=== PATIENT | female | born 1985 | race Caucasian/White ===

== ENCOUNTER 2016-11-26 17:18 | Observation (INO) | payer BC ==
--- NOTE | 2016-11-26 17:59 | ERNOTE ---
Abdominal HPI - Narrative Date of Service: 11/26/16 - General Chief Complaint: Abdominal Pain Time Seen by Provider: 11/26/16 17:53 Source: patient Exam Limitations: no limitations - Immun/Allergies/Home Medications Immunizatons: IMMUNIZATION HX Immunizations Up to Date Yes History of Influenza Vaccine No Hx Pneumococcal Vaccination No Allergies/Adverse Reactions: Allergies azithromycin [From Zithromax] Allergy (Intermediate, Verified 11/26/16 17:23) itch cefaclor [From Ceclor] Allergy (Intermediate, Verified 11/26/16 17:23) Hives Home Medications: HOME MEDICATIONS NK [No Home Medication] 11/26/16 [Last Taken Unknown] - Pain Score Pain Score #1 Pain Score: 9 Abdominal Pain Onset Location: periumbilical Pain Radiation: epigastric - History of Present Illness Narrative: 31yo, F, presents to ER with c/o periumbilical abdominal pain, diarrhea and nausea. Denies vomiting. Symptoms started this am with diarrhea, followed by abd pain at approx 15:00. Pain constant since onset, and progressively. Last BM 1 hr ago, which she describes as yellow and runny. Prior to onset of diarrhea BMs had been normal. LMP 2 weeks ago. Timing: constant, getting worse Modifying Factors - (Improves): Present: rest, other - pressure to abd Modifying Factors - (Worsens): Present: movement Associated Symptoms: Present: nausea. Absent: diarrhea-gross blood, diarrhea- mucous, fever/chills, vomiting, loss of appetite, shortness of breath Prior Abdominal Problems: Present: none Review of Systems - Review of Systems Constitutional: Absent: fever, chills, fatigue Gastrointestinal/Abdominal: Present: nausea, diarrhea, abdominal pain. Absent: vomiting, constipation Genitourinary: Present: dysuria. Absent: frequency, hematuria Skin: Absent: rash - Patient's Past Medical History Patient History - Medical: No pertinent hx Patient History - Cardiac/Respiratory: No pertinent hx Patient History - Cancer: No Hx of Cancer Patient History - Surgical Procedures: Tubal Ligation Patient History - Other: None LMP (females 10-50): 3 weeks - Social History Living Situations: home Abuse History: No History of abuse Psych History: No pertinent hx Smoking Status: Never smoker Have you smoked in the past 12 months: No Do you dip or chew tobacco: No Alcohol Use: none Drug Use: none - Immunizations Immunizations Up to Date: Yes Hx Pneumococcal Vaccination: No History of Influenza Vaccine: No Physical Exam - Physical Exam General Appearance: Present: wd/wn, alert, no apparent distress Respiratory: Present: no respiratory distress, normal breath sounds, no accessory muscle use. Absent: rales, rhonchi, wheezing Cardiovascular/Chest: Present: regular rate, rhythm, no murmur Gastrointestinal/Abdominal: Present: normal bowel sounds, nondistended, soft, tenderness - moderate to periumbilical and RLQ, with mild RUQ, Obturator sign. Absent: rebound, mass Back Exam: Present: no CVA tenderness Neurological Exam: Present: alert, oriented Skin Exam: Present: normal color, warm/dry ED Progress - Date and Time Seen: Date and Time: 11/26/16 2200 Pain had improved initially with pain medication, but now increased to 7/10 notably uncomfortable and guarding the abd. Reviewed CT scan results with pt. Will administer Toradol to help with pain and inflammation, along with Morphine. 11/26/16 22:25 Due to pt exam findings, CT results and persistent pain. I believe admission for observation, IVF, monitoring and pain control would be in her best interest. Spoke with Dr. Vickers re: consult, exam findings, HPI, labs and CT results. He will be coming in to see patient. After consulting Dr. Vickers, spoke with hospitalist Katie. Admission accepted. 11/26/16 22:50 Pt notes pain to be decreased after last dose of Morphine or Toradol, rating pain 2/10. Although, continued to be doubled over holding abd when walking to bathroom. 11/26/16 23:10 Dr Vickers in ER to see pt, reviewing CT scan and evaluating pt. 11/26/16 23:34 Dr. Vickers agrees that at minimum pt needs admission for monitoring. There is concern for blood clot, as she recently started on OCP, with side effect of blood clots. Dr. Vickers recommends lactic acid and D-dimer, if abnormal additional testing or transfer may be indicated. If normal will continue with admission as planned. Will give an additional IVF, along with ASA 324mg chewable. Dr. Davis aware of HPI, exam findings, results and plan. Dr. Davis will assume care at this time. - Results and Orders Patient's Lab Results:: I have reviewed the patient's lab results. - Vital Signs Patient's Vital Signs:: I have reviewed the patient's vital signs. Vital Signs: Vital Signs 11/26/16 17:20 Temperature 37.1 C Pulse Rate 82 Respiratory 17 Rate Blood Pressure 103/67 O2 Sat by Pulse 99 Oximetry - Progress/Reassessment Chief Complaint: Abdominal Pain Progress:: Improved Progress Note-Subjective: 11/26/16 20:00 Notes pain is decreased to 4/10. She denies any need for additional pain medication, but does request additional nausea medication. Warm blanket provided. She does note that when lying flat she does have some RLQ pain, but is more to periumbilical region when sitting upright. - Transfer of Care Physician Sign Out: Naomi Marx Brief History: Please refer to progress notes Receiving Physician: Brian Davis Pending Results: Labs - lactic acid, d-dimer Expected Disposition: Admit Departure Clinical Impression: Abnormal CT scan Abdominal pain Qualifiers: Abdominal location: right lower quadrant Qualified Code(s): R10.31 - Right lower quadrant pain - Departure Disposition: [facility] Condition: Fair
[2016-11-26 18:18] LABS: Hematocrit 37.8 % (37.0-47.0); Hemoglobin 12.7 gm/dL (12.5-16.0); Mean Cell Volume 91.7 fl (78-100); Mean Corpuscular Hemoglobin 30.8 pg (27-31); Mean Corpuscular Hgb Conc 33.6 g/dl (32-36); Mean Platelet Volume 10.5 fl (6.0-9.5); Neutrophil # 8.9 K/mm3 (1.3-6.0); Neutrophil % 72.8 % (42-75.0); Platelet Count 228 K/mm3 (150-450); Red Blood Count 4.12 M/mm3 (4.2-5.4); Red Cell Distribution Width 12.5 % (11.5-14.0); White Blood Count 12.3 K/mm3 (4.0-10.5)
[2016-11-26] MEDS ORDERED: DIATRIZOATE MEGLUMINE, SODIUM 30 ML BTL ONE (18:18)
[2016-11-26] MEDS ORDERED: DIATRIZOATE MEGLUMINE, SODIUM 30 ML BTL PO ONE (18:19)
[2016-11-26] MEDS ORDERED: ONDANSETRON HCL/PF 2 MG/ML VIAL IV ONE ×3 (18:20→22:09)
[2016-11-26] MEDS ORDERED: MORPHINE SULFATE 4 MG/ML SYRG IV ONE (18:20)
[2016-11-26] MEDS ORDERED: NORMAL SALINE 1,000 ML IV ONE ×2 (18:21→23:50)
[2016-11-26 18:22] LABS: Urine Bilirubin Negative (NEGATIVE); Urine Ketone Negative (NEGATIVE); Urine Nitrite Negative (NEGATIVE); Urine Protein Negative (NEGATIVE); Urine Specific Gravity >=1.030 SP.GR. (1.005-1.010); Urine Urobilinogen Normal (NORMAL); Urine pH 5.5 pH (5.0-7.0)
[2016-11-26 18:32] LABS: Albumin * 3.9 gm/dl (3.4-5.0); Anion Gap 13.5 mmol/L (6.8-13.8); BUN/Creatinine Ratio 18.2 (9.0-21.6); Bilirubin, Total 1.7 mg/dL (0.0-1.1); CRP 0.9 mg/dL (0.0-0.9); Ca. Corrected For Albumin 8.5 mg/dL (8.4-10.2); Calcium * 8.7 mg/dL (7.9-10.9); Carbon Dioxide 25.1 mmol/L (24-32.6); Potassium 3.6 mmol/L (3.4-4.6); Total Protein 7.5 gm/dL (6.2-8.2)
[2016-11-26 18:33] LABS: Urine Blood 5 /ul (NEGATIVE)
[2016-11-26 18:34] LABS: Urine Appearance Clear; Urine Bacteria 1+; Urine Color Dark Yellow; Urine RBC 0-5 /hpf (0-5); Urine WBC 0-5 /hpf (0-5)
[2016-11-26] MEDS ORDERED: ONDANSETRON HCL/PF 2 MG/ML VIAL ONE ×2 (18:41→20:09)
[2016-11-26] MEDS ORDERED: MORPHINE SULFATE 4 MG/ML SYRG ONE (18:41)
[2016-11-26] MEDS ORDERED: MORPHINE SULFATE 2 MG/ML DISP.SYRIN IV ONE (22:09)
[2016-11-26] MEDS ORDERED: KETOROLAC TROMETHAMINE 30 MG/ML VIAL IV ONE (22:09)
[2016-11-26] MEDS ORDERED: MORPHINE SULFATE 2 MG/ML DISP.SYRIN ONE (22:15)
[2016-11-26] MEDS ORDERED: KETOROLAC TROMETHAMINE 30 MG/ML VIAL ONE (22:16)
[2016-11-26] MEDS ORDERED: ASPIRIN 81 MG TAB.CHEW PO ONE (23:47)
[2016-11-26] MEDS ORDERED: ASPIRIN 81 MG TAB.CHEW ONE (23:51)
--- NOTE | 2016-11-27 02:07 | HP ---
Chief Complaint - Chief Complaint Date of Service: 11/27/16 Time of Service: 01:42 Chief Complaint: " Diarrhea, RT lower abominal pain". Source of HPI- Pt; reliable, ER provider report. History of Present Illness: Ms. Abbott is a 31-yr-old [place] pt of Dr. Leopoldo Leonard with a PMH of: Anxiety, Asthma, Depression & Mylagia. Pt states yesterday morning,11/26, she woke up with abdominal pain and cramping which was followed by diarrhea. She then continued to have liquid diarrhea about 5 times. She had peanut butter jelly sandwich around 1.30 pm and almost right away had another episode of diarrhea and abdominal cramping. She went to work and at about 3 pm, she had diarrhea and felt lightheaded, dizzy and became sweaty, and EMS was called. She reports that the pain is mostly in the RLQ and its sharp in nature when it comes on. She denies the associated symptoms of fevers and chills, Vomiting, pain radiation or bloody stools. At the ED most of the Labwork was unremarkable however, she continued to have persistent diarrhea. The CT of the Abdomen showed inflammatory enteritis on RLQ.The ERP consulted surgery ( Dr. Vickers) and he evaluated pt at the ED and will follow pt. She will be admitted under observation for supportive cares and to determine etiology of diarrhea. - Patient's Past Medical History Patient History - Medical: Anxiety, Depression Patient History - Cardiac/Respiratory: Asthma Patient History - Cancer: No Hx of Cancer Patient History - Surgical Procedures: Tubal Ligation Patient History - Other: None LMP (females 10-50): 3 weeks - Family History Father Family History - Cardiac/Respiratory: Coronary Heart Disease, Hypertension Mother Family History - Cardiac/Respiratory: COPD, Hypertension - Social History Living Situations: home Abuse History: No History of abuse Psych History: No pertinent hx Smoking Status: Never smoker Have you smoked in the past 12 months: No Do you dip or chew tobacco: No Alcohol Use: none Drug Use: none - Immunizations Immunizations Up to Date: Yes Hx Pneumococcal Vaccination: No History of Influenza Vaccine: No Review Of Systems (GEN) - Review of Systems Generalized/Overall Review: Present: Weakness, Diaphoresis. Absent: Chills, Fever EENTM: Absent: Eye Pain, Blurred Vision, Tearing Respiratory: Absent: Cough, Shortness of Breath, Wheezing Cardiac: Absent: Chest Pain, Edema, Palpitations, Syncope Abdominal: Absent: Nausea, Vomiting, Hematemesis Genitourinary: Absent: Burning, Itching, Urgency, Frequency Musculoskeletal: Absent: Joint Pain, Back Pain, Joint Swelling Neurological: Present: Anxiety, Depressed. Absent: Headache Skin: Absent: Dryness, Lesions, Rash Endocrine: Absent: Intolerance to Cold, Intolerance to Heat, Increased Thirst Misc: All systems neg except as marked Immunizations: IMMUNIZATION HX Immunizations Up to Date Yes History of Influenza Vaccine No Hx Pneumococcal Vaccination No Allergies/Adverse Reactions: Allergies Allergy/AdvReac Type Severity Reaction Status Date / Time azithromycin [From Zithromax] Allergy Intermediate itch Verified 11/26/16 17:23 cefaclor [From Ceclor] Allergy Intermediate Hives Verified 11/26/16 17:23 Home Medications: HOME MEDICATIONS NK [No Home Medication] 11/26/16 [Last Taken Unknown] Exam - Exam Vital Signs: Vital Signs - Last Taken Temp 37.1 C 11/27/16 01:41 Pulse 70 11/27/16 01:41 Resp 18 11/27/16 01:41 BP 90/58 11/27/16 01:41 Pulse Ox 98 11/27/16 01:41 Constitutional: Present: Alert, Oriented x3, Cooperative, Mild distress ENT Exam: Present: normal ENT inspection Eye Exam: bilateral eye: normal inspection, PERRL Neck: Present: full range of motion, supple, normal inspection Back Exam: Present: normal inspection, no CVA tenderness Breasts: Present: Exam deferred Respiratory: Present: lungs clear, No rales, No wheezing Cardiovascular/Chest: Present: normal peripheral pulses, regular rate, rhythm, no chest tenderness, no edema, no murmur Abdomen: Present: Normal bowel sounds, soft, tender. Absent: rigidity - On RLQ. /Rectal: Present: Exam deferred Extremity: Present: normal range of motion, non-tender, normal inspection, no pedal edema Skin Exam: Present: warm/dry, no cyanosis Lymphatic: Present: no adenopathy Neurologic: Present: no motor/sensory deficits, alert, normal mood/affect, oriented x 3 Appearance: Present: appropriate appearance, appropriate insight Eye contact: Present: cooperative, good eye contact, normal speech Thoughts: Present: normal thought pattern, no apparent hallucination Diagnostic Studies: Abnormal Lab Results 11/26/16 Range/Units 23:45 D-Dimer 1.53 H (0.19-0.49) mg/L Laboratory Results WBC 12.3 K/mm3 (4.0-10.5) H 11/26/16 18:17 RBC 4.12 M/mm3 (4.2-5.4) L 11/26/16 18:17 Hgb 12.7 gm/dL (12.5-16.0) 11/26/16 18:17 Hct 37.8 % (37.0-47.0) 11/26/16 18:17 MCV 91.7 fl (78-100) 11/26/16 18:17 MCH 30.8 pg (27-31) 11/26/16 18:17 MCHC 33.6 g/dl (32-36) 11/26/16 18:17 RDW 12.5 % (11.5-14.0) 11/26/16 18:17 Plt Count 228 K/mm3 (150-450) 11/26/16 18:17 MPV 10.5 fl (6.0-9.5) H 11/26/16 18:17 Immature Gran % (Auto) 0.20 % (0.001-0.429) 11/26/16 18:17 Immature Gran # (Auto) 0.03 K/mm3 (0.000-0.0310) 11/26/16 18:17 Neutrophils % 72.8 % (42-75.0) 11/26/16 18:17 Lymphocytes % 17.6 % (20-51) L 11/26/16 18:17 Monocytes % 7.0 % (0.0-9) 11/26/16 18:17 Eosinophils % 2.0 % (0.0-3.0) 11/26/16 18:17 Basophils % 0.4 % (0.0-1.0) 11/26/16 18:17 Nucleated RBC % 0.0 k/mm3 (0-1) 11/26/16 18:17 Neutrophils # 8.9 K/mm3 (1.3-6.0) H 11/26/16 18:17 Lymphocytes # 2.2 k/mm3 (1.5-3.5) 11/26/16 18:17 Monocytes # 0.9 k/mm3 (0.0-1.0) 11/26/16 18:17 Eosinophils # 0.3 k/mm3 (0.0-0.7) 11/26/16 18:17 Absolute Basophils 0.1 k/mm3 (0.0-0.1) 11/26/16 18:17 ESR 14 mm/hr (0-15) 11/26/16 18:17 D-Dimer 1.53 mg/L (0.19-0.49) H 11/26/16 23:45 Sodium 141 mmol/L (132-142) 11/26/16 18:17 Plasma Sodium 141 mmol/L (130-142) 11/26/16 18:17 Potassium 3.6 mmol/L (3.4-4.6) 11/26/16 18:17 Chloride 106 mmol/L (97-106) 11/26/16 18:17 Carbon Dioxide 25.1 mmol/L (24-32.6) 11/26/16 18:17 Anion Gap 13.5 mmol/L (6.8-13.8) 11/26/16 18:17 BUN 14 mg/dL (3-23) 11/26/16 18:17 Creatinine 0.77 mg/dL (0.4-1.4) 11/26/16 18:17 Est GFR (Non-Af Amer) 92 mL/min (60-130) 11/26/16 18:17 BUN/Creatinine Ratio 18.2 (9.0-21.6) 11/26/16 18:17 Random Glucose 98 mg/dL (70-110) 11/26/16 18:17 Lactic Acid, Venous 0.7 mmol/L (0.4-1.9) 11/26/16 23:45 Calcium 8.7 mg/dL (7.9-10.9) 11/26/16 18:17 Calcium Adj for Albumin 8.5 mg/dL (8.4-10.2) 11/26/16 18:17 Total Bilirubin 1.7 mg/dL (0.0-1.1) H 11/26/16 18:17 AST 15 U/L (0-48) 11/26/16 18:17 ALT 16 U/L (19-67) L 11/26/16 18:17 Alkaline Phosphatase 67 U/L (50-170) 11/26/16 18:17 C-Reactive Prot, Quant 0.9 mg/dL (0.0-0.9) 11/26/16 18:17 Total Protein 7.5 gm/dL (6.2-8.2) 11/26/16 18:17 Albumin 3.9 gm/dl (3.4-5.0) 11/26/16 18:17 Amylase 67 U/L (25-115) 11/26/16 18:17 Lipase 214 U/L (73-393) 11/26/16 18:17 Urine Color Dark yellow 11/26/16 18:17 Urine Appearance Clear 11/26/16 18:17 Urine pH 5.5 pH (5.0-7.0) 11/26/16 18:17 Ur Specific Ryan >=1.030 SP.GR. (1.005-1.010) 11/26/16 18:17 Urine Protein Negative mg/dL (NEGATIVE) 11/26/16 18:17 Urine Glucose (UA) Negative mg/dL (NEGATIVE) 11/26/16 18:17 Urine Ketones Negative mg/dL (NEGATIVE) 11/26/16 18:17 Urine Blood 5 /ul (NEGATIVE) H 11/26/16 18:17 Urine Nitrate Negative (NEGATIVE) 11/26/16 18:17 Urine Bilirubin Negative mg/dl (NEGATIVE) 11/26/16 18:17 Urine Urobilinogen Normal EU/dl (NORMAL) 11/26/16 18:17 Ur Leukocyte Esterase Negative /ul (NEGATIVE) 11/26/16 18:17 Urine RBC 0-5 /hpf (0-5) 11/26/16 18:17 Urine WBC 0-5 /hpf (0-5) 11/26/16 18:17 Ur Epithelial Cells 0-5 /hpf (0-5) 11/26/16 18:17 Urine Bacteria 1+ (NONE) H 11/26/16 18:17 Urine Culture Comments No culture indicated 11/26/16 18:17 Urine HCG, Qual Negative (NEGATIVE) 11/26/16 18:17 Assessment/Plan - Assessment/Plan (1) Acute diarrhea Assessment: Pt is a 31-yr-old female who presented with complaints of watery diarrhea that had gone on for about 8 hour prior to presentation to the hospital and also persisted when she was at the ED. The diarrhea is accompanied by RLQ pain/ tenderness. The CT showed inflammatory enteritis of the RLQ. She has had no fevers/chills She denied noting blood or pus in stool. Has no recent antiotic use. Her labwork involving CBC, CBP, ESR, CRP were all unremarkable. Will check for Fecal Leukocytes and occult stool to see if its inflammatory or non-inflammatory diarrhea and to determine if additional testing for organisms such as shigella, salmonella, campylobacter, giardia or yersinia. Will check IBD panel. Monitor to see if symptoms are improving to see if additional testing is necessary as she has no symptoms of severe illness: lack of fevers or signs of severe dehydration or Leukocytosis. CBC in am. Provide supportive cares with: Keeping NPO status and advance as nara, IVF hydration, pain mgt, antiemetics. Surgery will follow. Problem: Acute (2) Elevated d-dimer Assessment: Even though D-dimer elevated at 1.53, the clinical probability of pulmonary embolism is low: no unilateral swelling, Pulse rate < 100, no surgery or trauma , no hemoptysis, spo2 > 94%. However according to PERC criteria, she is positive for oral hormone use and therefore, may need CT of the chest to rule out/rule in Pulmonary Embolism. Problem: Acute (3) Anxiety Problem: Chronic (4) Depression Problem: Chronic
[2016-11-27] MEDS ORDERED: NORMAL SALINE 1,000 ML IV ONE (02:13)
[2016-11-27 03:48] LABS: Bacteria Many; Yeast Rare
[2016-11-27 05:57] LABS: Neutrophil 100 % (42-75); White Blood Count Rare
[2016-11-27 06:17] LABS: Hematocrit 29.7 % (37.0-47.0); Hemoglobin 9.9 gm/dL (12.5-16.0); Mean Cell Volume 93.4 fl (78-100); Mean Corpuscular Hemoglobin 31.1 pg (27-31); Mean Corpuscular Hgb Conc 33.3 g/dl (32-36); Mean Platelet Volume 11.2 fl (6.0-9.5); Neutrophil % 54.6 % (42-75.0); Platelet Count 157 K/mm3 (150-450); Red Blood Count 3.18 M/mm3 (4.2-5.4); Red Cell Distribution Width 12.7 % (11.5-14.0); White Blood Count 7.3 K/mm3 (4.0-10.5)
[2016-11-27] MEDS ORDERED: ONDANSETRON HCL/PF 2 MG/ML VIAL IV PRN (08:12)
[2016-11-27 16:06] VITALS: BP 94/63
[2016-11-27] MEDS ORDERED: ACETAMINOPHEN 500 MG TABLET PO ONE (16:12)
--- NOTE | 2016-11-27 16:24 | DS ---
(1) Viral gastroenteritis Problem: Acute Description of Stay: Kamron was admitted with severe abdominal pain and severe frequent watery diarrhea. She was admitted for observation, hydration, and stool studies. All studies came back normal without evidence of bacterial infection. She was hydrated and nausea treated. Symptoms improved and she was discharged to home on the following day with suspected viral gastroenteritis. She will stay on a liquid diet and advance to BRAT diet as tolerated. She will follow up with me in a week. Procedures Performed: none Discharge Disposition: Home self care Disposition: Home self-care Condition: Fair Discharge Activity: Activity as tolerated Discharge Diet: Other - BRAT diet Referrals: Leopoldo Leonard DO [Primary Care Provider] - One Week Problem Oriented Discharge Instructions to Patient/Family: Viral Gastroenteritis, Adult, [id number], Food Choices to Help Relieve Diarrhea, Adult Additional Patient Instructions (free text): Follow up with Dr. Leonard 12/04 at 10:00. Complete Home Medications List: Complete Home Medication List: NK [No Home Medication] 11/26/16
[2016-11-28 16:21] LABS: P-ANCA Titer DNR titer (<1:20)
--- NOTE | 2016-12-02 12:03 | CONS ---
[facility] - General Date of Service: 11/26/16 - Patient examined in ER 23:10 Source: patient, family, RN/MD, RN notes reviewed, old records - History of Present Illness Initial Comments: This morning she had some yellow diarrhea with cramps. She ate a peanut butter and jelly sandwich and then went ahead and went to work. While at work she describes a very sudden onset of severe abdominal pain in the right lower quadrant at around 3 PM. It doubled her over and she became sweaty. The underlying pain has been constant ever since with occasional crampy exacerbations. She initially described pain of 10/10. She was initially given morphine and her pain decreased to about 4/10, however it has again increased and is 7/10. She states she is more comfortable if she is sitting up. She has had more diarrhea. She was initially evaluated by Aurora PALENCIA. A CAT scan of the abdomen and pelvis revealed abnormally thickened small bowel in the right lower quadrant and I was asked to evaluate patient. Severity: severe Modifying Factors - (Worsens): Reports: movement Modifying Factors - (Improves): Reports: rest Associated Symptoms: other - No fever or chills, no vomiting, loose yellow stools, no preceeding illness or similar symptoms previously Allergies/Adverse Reactions: Allergies azithromycin [From Zithromax] Allergy (Intermediate, Verified 11/26/16 17:23) itch cefaclor [From Ceclor] Allergy (Intermediate, Verified 11/26/16 17:23) Hives Home Medications: Home Medications Medication Instructions Recorded Last Taken NK [No Home Medication] 11/26/16 Unknown - Patient's Past Medical History Patient History - Medical: Anxiety, Depression, Other - His had some pelvic discomfort with periods every 2 weeks and was seen by Dr. De Leon. She started an OTC contraceptive about 2 weeks ago. She has not had a menstrual period for 4 weeks. Patient History - Cardiac/Respiratory: Asthma Patient History - Cancer: No Hx of Cancer Patient History - Surgical Procedures: Tubal Ligation Patient History - Other: None LMP (females 10-50): 3 weeks LMP (Calendar): 11/04/16 - Family History Father Family History - Cardiac/Respiratory: Coronary Heart Disease, Hypertension Family History - Cancer: Melanoma Mother Family History - Medical: GERD Family History - Cardiac/Respiratory: COPD, Hypertension - Social History Living Situations: home Abuse History: No History of abuse Psych History: No pertinent hx Smoking Status: Never smoker Have you smoked in the past 12 months: No Do you dip or chew tobacco: No Patient requests Smoking Cessation Consult: No Initiate information on Smoking Cessation: No Alcohol Use: none Drug Use: none - Immunizations Immunizations Up to Date: Yes Hx Pneumococcal Vaccination: No History of Influenza Vaccine: No Procedures ANESTH INJECT-SPIN CANAL (05/28/05) DRESSING OF WOUND NEC (07/10/11) DX PROC FETUS/AMNION NEC (05/28/05) INSERT CATHETER SPINAL CANAL, INFUSION THER. SUB. (05/28/05) Medications - Medications Current Medications: OTC contraceptive pill started 2 weeks ago Review of Systems - Review of Systems Generalized/Overall Review: Present: Diaphoresis. Absent: Chills, Fever, Weight loss EENTM: Present: No Symptoms Reported Respiratory: Present: No Symptoms Reported, Other. Absent: Shortness of Breath Cardiac: Present: Other - Diaphoresis earlier. Absent: Chest Pain - No chest pain Abdominal: Present: Nausea, Abdominal Pain, Diarrhea, Other - No blood or mucus in the bowel movements.. Absent: Vomiting Genitourinary: Present: No Symptoms Reported, Other - She has not had a period for about 4 weeks Musculoskeletal: Present: No Symptoms Reported Neurological: Present: No Symptoms Reported Skin: Present: No Symptoms Reported Physical Examination - Exam Vital Signs: Vital Signs - Last Taken Temp 36.9 C 11/26/16 23:30 Pulse 74 11/26/16 23:30 Resp 20 11/26/16 23:30 BP 90/50 11/26/16 23:30 Pulse Ox 100 11/26/16 23:30 O2 Oxygen Delivery Method Room Air Constitutional: Present: Alert, Oriented x3, Cooperative, Well developed, Well nourished, Moderate distress ENT Exam: Present: normal ENT inspection Eye Exam: bilateral eye: normal inspection Neck: Present: full range of motion, normal inspection Breasts: Present: Exam deferred Respiratory: Present: no accessory muscle use. Absent: respiratory distress Cardiovascular/Chest: Present: regular rate, rhythm Peripheral Pulses: dorsalis-pedis (R): 4+, dorsalis-pedis (L): 4+, radial (R): 4 +, radial (L): 4+ Abdomen: Present: other - Her abdomen is slightly protuberant but soft. There is normal peristaltic activity. She reports increased pain with peristalsis. This resolves when the abdomen is quiet. There is tympany to percussion in the right lower quadrant but no percussion tenderness or guarding. She does report pain on palpation of the right lower quadrant but does not guard. There is no increased pain on sudden release of the examining hand. /Rectal: Present: Exam deferred Extremity: Present: normal range of motion, normal inspection, no calf tenderness. Absent: lower extremity edema Skin Exam: Present: normal color, warm/dry. Absent: diaphoresis Neurologic: Present: regional engineer II-XII nml as tested, no motor/sensory deficits Appearance: Present: appropriate appearance, appropriate insight, neat, no memory impairment Eye contact: Present: cooperative, good eye contact, normal speech Thoughts: Present: normal thought pattern - Results and Findings: Narrative: Her WBC is 12.3 with a hemoglobin of 12.7 and 228,000 platelets. Total bilirubin is 1.7 however other liver functions are normal. Amylase and lipase are normal. ESR is 14 and CRP is 0.9. Urinalysis remarkable for a specific gravity of 10.30 CT scan reveals thickening of a significant length of the ileum although the short segment before the cecum appears normal. There is minimal stranding. There is no free air or obstruction. - Assessments/Findings (1) Abdominal pain Diagnosis(s): She reports severe pain however has relatively few physical findings, and no findings suspicious for acute abdomen. Problem: Acute Qualifiers: Abdominal location: right lower quadrant Qualified Code(s): R10.31 - Right lower quadrant pain (2) Abnormal CT scan Diagnosis(s): The abnormality on CT could be artifactual, could represent foodborne illness changes, inflammatory bowel disease, or early ischemic changes. The most severe disease would be an embolism from having started an OTC hormone containing -control pill recently, and that might require treatment beyond the capacity of [facility] to provide. Her WBC is elevated although not markedly so and ESR and CRP are normal which also go against this etiology. With pain out of proportion to physical findings, however this etiology must still be entertained. I discussed the case at length with both Aurora PALENCIA and Dr. Davis who will be assuming care. It would be reasonable to have the patient remained in the emergency room until a d-dimer and lactic acid have been obtained, as if these are markedly positive the diagnosis of ischemic disease must be entertained, and this would be better managed by transfer to a tertiary care center. An inflammatory disease panel and stool culture for enteric pathogens and virus can be submitted although these results will take some time. These problems however could be managed at [facility], and the patient could then be admitted here for observation with serial exams and lab. In the meantime it would be reasonable to have the patient chew a regular aspirin in case this does represent a clot. Problem: Acute
--- NOTE | 2016-12-02 13:01 | PN ---
Dictated Progress Note - Date and Time Seen: Date: 11/27/16 Time: 08:00 - Progress Note Narrative: Vital Signs - Last Taken Temp 37 C 11/27/16 0600 Pulse 83 11/27/16 0600 Resp 16 11/27/16 0600 BP 88/47 11/27/16 0600 Pulse Ox 98 11/27/16 0600 Her vital signs have remained normal. Her white blood cell count has returned to normal. She still has some discomfort and loose stools but has not vomited. I discussed her case with Dr. Leonard. At this juncture her diet could be advanced, she can be discharged home with follow-up which will be determined by the stool studies which are still pending.
== END 2016-11-27 17:20 | disposition home or self-care (01) ==
LOC: ER 17:18 → MS 23:07
PROVIDERS: ADMIT Nurse Practitioner; ATTEND Family Medicine
DX: A08.4 Viral intestinal infection, unspecified (principal); R78.9 Finding of unspecified substance, not normally found in blood
CPT/HCPCS: 36415; 74177; 80053; 81001; 82150; 82272; 83605; 83631; 83690; 84703; 85025; 85379; 85652; 86021; 86140; 87045; 87046; 87425; 87493; 87798; 89055; 96374; 96375; 96376; 99284; G0378; J2405